=== PATIENT | male | born 1970 | race Caucasian/White ===

== ENCOUNTER 2020-07-09 16:21 | Emergency (ER) | payer MEDICAID ==
[~2020-07-09] VITALS: Ht 185.4 cm; Wt 108.9 kg
[2020-07-09 16:33] VITALS: BP_SYST 130
[2020-07-09 17:00] VITALS: BP_SYST 130
== END 2020-07-09 17:00 | disposition home or self-care (01) ==
LOC: SED 16:21
DX: Z02.89 Encounter for other administrative examinations (principal); Z48.00 Encounter for change or removal of nonsurgical wound dressing
CPT/HCPCS: 99283